=== PATIENT | male | born 1950 | race Caucasian/White ===

== ENCOUNTER 2023-01-16 12:19 | Outpatient (RCR) | payer MEDICARE, SELFPAY ==
[2023-01-16 12:59] LABS: Creatinine* 0.9 mg/dL (0.5-1.5); Estimated Glomerular Filt Rate 90 ml/min
--- NOTE | 2023-02-03 09:53 | ONC.NURNOTE ---
Dx: Malignant Neoplasm of left lung
== END 2023-07-15 23:59 | disposition home or self-care (01) ==
LOC: CCIC 12:19
PROVIDERS: PCP Family Medicine; Visit Provider Clinical Nurse Specialist
DX: C34.92 Malignant neoplasm of unspecified part of left bronchus or lung (principal)
CPT/HCPCS: 36415; 36592; 82565